=== PATIENT | female | born 1965 | race Caucasian/White ===

== ENCOUNTER 2021-01-15 16:39 | Outpatient (CLI) | payer OTHER, SELFPAY ==
--- NOTE | ~2021-01-15 | MM_ITS ---
EXAMINATION: MM screening [facility] BI w victor manuel HISTORY: Screening mammogram TECHNIQUE: Craniocaudal and mediolateral oblique 3-D tomosynthesis images were obtained and synthetic 2-D images were generated. CAD analysis was submitted and interpreted. COMPARISON: 11/18/2015 bilateral diagnostic digital mammogram examination 09/20/2013 bilateral diagnostic digital mammography and bilateral breast ultrasound 07/25/2012 bilateral diagnostic digital mammogram BREAST PARENCHYMAL COMPOSITION: There are scattered areas of fibroglandular density. FINDINGS: Diminished prominence of fibroglandular stroma since 11/18/2015. Occasional benign calcifica tions. There is no evidence of suspicious mass, calcification, or architectural distortion to suggest malignancy in either breast. There has been no suspicious interval change. IMPRESSION: 1. No mammographic evidence of malignancy. 2. Recommend routine screening mammography in one year. BI-RADS Category 2: Benign finding(s). Reviewed, dictated and finalized at location A.
== END 2021-01-15 16:40 | disposition home or self-care (01) ==
LOC: ANHIMG 16:44
PROVIDERS: PCP Nurse Practitioner Psychiatric/Mental Health; Visit Provider Nurse Practitioner Women's Health
DX: Z12.31 Encounter for screening mammogram for malignant neoplasm of breast (principal)
CPT/HCPCS: 77063; 77067

== ENCOUNTER 2024-10-28 09:13 | Emergency (ER) | payer OTHER, SELFPAY ==
--- OUTSIDE RECORDS SUMMARY | 2024-10-28 09:15 | XMS_ITS | Encounter Summary ---
Author Organization [facility] Address [facility] [place] [address] Care Team Providers Care Machine Repairer Maintenance Name Role Phone [place] tinsley Viridiana SKILL LABOR Primary Care Provider Unav ailable Antonietta Mckeon MD Primary Care Provider Encounter Details Date Type Department Care Team (Late st Contact Info) Description 05/21/2015 Abstract [facility] CONVERSION [address] [place] [address] MD [address] [place] [address] [phone] Social History Tobacco Use Types Packs/Day Years Used Date Smoking Tobacco: Never Assessed Comments Unknown Sex and Gender Information Value Date Recorded Sex Assigned at Female 11/03/2019 7:07 AM CDT Legal Sex Female 4:23 PM CDT Gender Identity Female 11/03/2019 7:07 AM CDT Sexual Orientation Straight 11/03/2019 7: 07 AM CDT documented as of this encounter Plan of Treatment Upcoming Encounters Date Type Department Care Team (Late st Contact Info) Description 02/01/2025 8:10 AM CDT Laboratory Only [facility] Family & Internal Medicine [address] [phone] 02/08/2025 10:20 AM CDT Office Visit [facility] Family & Internal Medicine - [place] [address] [place] [address] [place] [address] [facility] [address] [place] [phone] documented as of this encounter Visit Diagnoses Not on filedocumented in this encounter Additional Health Concerns Infection Onset Date Last Indicated Resolved Time COVID-19 Rule Out 11/04/2021 11/04/2021 11/04/2021 5:23 PM CDT COVID-19 Rule Out 11/18/2022 11/18/2022 11/18/2022 1:17 PM CDT documented as of this encounter Care Teams Machine Repairer Maintenance Relationship Specialty Start Date End Date Ewa Raya NP PCP - General NURSE PRACTITIONER 06/20/18 09/10/21 [place] [address] [facility] [address] [place] [address] PCP - General FAMILY PRACTICE 11/04/21 documented as of this encounter
--- OUTSIDE RECORDS SUMMARY | 2024-10-28 09:15 | XMS_ITS | Clinical Summary ---
Author Organization [facility] Address [address] [place] [address] Care Team Providers Care Web Art Director Name Role Phone Antonietta Mckeon MD Primary Care Provider [phone] Allergies Active Allergy Reactions Criticality Noted Date Comments Latex Unknown 10/22/2012 Nuts Unknown 10/22/2012 Medications carbidopa-levodopa 25-100 MG tablet Take 1 tablet by mouth 2 (two) times daily. 03/05/20 14 Active Multiple Vitamins-Iron (MULTI-VITAMIN/IRO N) Tab Take 1 tablet by mouth daily. Active Cholecalciferol 50 MCG (1999 UT) Cap Take 1 tablet by mouth daily. Active EPINEPHRINE 0.3 MG/0.3ML injectionIndicatio ns:Hx of anaphylaxis Inject 0.3 mLs (0.3 mg total) into the muscle as needed for Anaphylaxis . 1 each 2 12/09/19 22 Active Ofatumumab (KESIMPTA) 20 MG/0.4ML Solution Auto-injector 01/06/20 22 Active probiotic (FLORAJEN3) Cap capsule Take 1 capsule by mouth 3 (three) times daily with meals. Active sertraline (ZOLOFT) 25 MG tabletIndications: Mixed anxiety and depressive disorder Take 1 tablet (25 mg total) by mouth daily. 90 tablet 3 02/11/20 24 Active carBAMazepine XR (TEGRETOL XR) 100 MG 12 hr tablet Take 3 tablets (300 mg total) by mouth. Active atorvastatin (LIPITOR) 40 MG tabletIndications: Mixed hyperlipidemia Take 1 tablet (40 mg total) by mouth nightly at bedtime. 90 tablet 3 08/08/20 24 Active oxybutynin (DITROPAN) 5 MG tabletIndications: Overactive bladder TAKE 1 TABLET BY MOUTH TWICE A DAY 180 tablet 3 10/06/19 25 Active oxybutynin (DITROPAN) 5 MG tabletIndications: Overactive bladder Take 1 tablet (5 mg total) by mouth 2 (two) times daily. 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 ) 02/07/2015 Neurogenic bladder 02/07/2015 Muscle spasm 02/07/2015 Diverticulitis of sigmoid colon 02/07/2015 Multiple sclerosis ([facility]) 11/15/2013 Allergic rhinitis 12/12/2012 Vitamin D deficiency 06/27/2012 Hyperlipidemia 03/14/2012 Resolved Problems Problem Noted Date Diagnosed Date Resolved Date Need for prophylactic vaccin ation against hepatitis B virus 12/12/2021 12/15/2021 Reflux esophagitis 02/07/2015 Encounters Date Type Department Care Team Description 08/08/2024 9:40 AM ASSISTANT DIRECTOR OF ADMISSIONS Office Visit [facility] Family & Internal Medicine [address] [phone] Antonietta Mckeon MD Medication Management 08/08/2024 Travel from Last 3 Months Immunizations Name Administration Dates Next Due Flucelvax 2 YRS+ (Multi-Dose Vial) 08/21/2018 Flucelvax 6 Months+ (Prefill ed Syringe) 08/27/2019 Hepatitis B (Recombivax Hb 10 Mcg) 01/07/2022, Influenza (Generic) 05/23/2021, 7,06/27/2015,2013,06/28/2012 Influenza Adult (Generic) 05/18/2023,07/2022,07/29/2020,2019,08/21/2018,07/08/2014,06/28/2012 MODERNA COVID-19 (12+) MRNA, LNP-S, PF, 100 MCG/ 0.5 ML DOSE 06/11/2022,11/28/2020,10/26/2020 MODERNA COVID-19 (12+), MRNA , LNP-S, PF, 50 MCG/0.5 ML (SPIKEVAX) 05/18/2023 MODERNA COVID-19 (STUDENT NURSE HARDIK CARMITA), MRNA, LNP-S, PF, 50 MCG/ 0.25 ML DOSE 07/31/2021 PFIZER COVID-19 (ORIGINAL FORMULATION, PURPLE CAP) mRNA, LNP-S, PF, 30 MCG/0.3 ML DOSE 12/11/2021 Pneumococcal (Prevnar 20) 08/20/2023 Tdap (Adacel) 12/08/2021 Family History Medical History Relation Comments Diabetes Brother Heart Disease Brother Diabetes Father Heart Disease Father Hypertension Father Heart Disease Maternal Grandfather Breast Cancer Maternal Grandmother UNSURE OF A GE Heart Disease Maternal Grandmother Other Maternal Grandmother Arthritis Mother Na Diabetes Mother Na Fibrocystic breast disease Mother Heart Disease Mother Hypertension Mother Cancer Sister Diabetes Sister Heart Disease Sister Melanoma Sister Relation Status Comments Brother Alive Father Maternal Grandfather Maternal Grandmother Mother Sister Alive Social History Tobacco Use Types Packs/Day Years Used Date Smoking Tobacco: Former Cigarettes 1 4 Q uit: 1987 Smokeless Tobacco: Never Tobacco Cessation:Counseling Given: No Alcohol Use Standard Drinks/Week Comments Yes 0 (1 standard drink = 0.6 oz pur e alcohol) AUDIT-C Answer Date Recorded Frequency of Alcohol Consumption Not on file 07/26/2020 Q2: How many drinks containi ng alcohol do you have on a typical day when you are drinking? 1 or 2 07/26/2020 Frequency of Binge Drinking Not on file 11/2019 PHQ-2 Answer Date Recorded Patient Health Questionnaire-2 Score 0 02/11/2024 Comments No Sex and Gender Information Value Date Recorded Sex Assigned at Female 11/03/2019 7:07 AM CDT Legal Sex Female 4:23 PM CDT Gender Identity Female 11/03/2019 7:07 AM CDT Sexual Orientation Straight 11/03/2019 7: 07 AM CDT Last Filed Vital Signs Vital Sign Reading Time Taken Comments Blood Pressure 116/82 08/08/2024 9:11 AM ASSISTANT DIRECTOR OF ADMISSIONS Pulse 68 08/08/2024 9:11 AM ASSISTANT DIRECTOR OF ADMISSIONS Temperature 36.7 C (98.1 F) 08/08/2024 9:11 AM ASSISTANT DIRECTOR OF ADMISSIONS Respiratory Rate 14 08/08/2024 9:11 AM ASSISTANT DIRECTOR OF ADMISSIONS Oxygen Saturation 99% 08/08/2024 9:11 AM ASSISTANT DIRECTOR OF ADMISSIONS Inhaled Oxygen Concentration - - Weight 82.1 kg (181 lb) 08/08/2024 9:11 AM ASSISTANT DIRECTOR OF ADMISSIONS Height 157.5 cm (5' 2 ) 08/08/2024 9:11 AM ASSISTANT DIRECTOR OF ADMISSIONS Body Mass Index 33.11 08/08/2024 9:11 AM ASSISTANT DIRECTOR OF ADMISSIONS Plan of Treatment Upcoming Encounters Date Type Department Care Team (Late st Contact Info) Description 02/01/2025 8:10 AM CDT Laboratory Only [facility] Family & Internal Medicine [address] [phone] 02/08/2025 10:20 AM CDT Office Visit [facility] Family & Internal Medicine [address] [phone] [place] [address] [facility]. [address] [place] [phone] Health Maintenance Due Date Last Done Comments Cervical Cancer Screening Pap Smear (Age 30 to 64) Every 3 Years 1964 Annual Physical 01/10/1967 Hepatitis C 01/10/1982 RSV Immunization or 60+ Years (1 - Risk 60-74 years 1-dose series) 2024 COVID-19 Vaccine ( season) 2024 05/05/2024, 05/18/2023, 06/11/2022, Additional history exists PHQ-2 (Physician [place]) 08/23/2024 02/11/2024 Colorectal Cancer Screening FIT-DNA (3 Years) 01/14/2025 01/14/2022, 09/01/2018 Mammogram Screening 03/07/2026 03/07/2024, 02/08/2023, 01/29/2022, Additional history exists Cervical Cancer Screening Pap with HPV Testing (Age 30 to 64) Every 5 Years 02/13/2029 02/14/2024, 08/10/2018 Cervical Cancer Screening with HPV 02/13/2029 DTaP, Tdap and Td Vaccines (2 - Td or Tdap) 12/09/2031 12/08/2021 Pneumococcal Vaccine: Pediatrics (0 to 5 Years) and At-Risk Patients (6 to 64 Years) Completed 08/20/2023 Zoster Vaccines Completed 11/04/2023, 09/03/2023 Colorectal Cancer Screening FIT/FOBT (1 Year) Discontinued 03/18/2024 Influenza Adult Completed 05/08/2024, 04/24, 06/03/2022, Additional history exists Meningococcal B Vaccine Aged Out No l onger eligible based on patient's age to complete this topic Meningococcal Vaccine Aged Out No milo dennis eligible based on patient's age to complete this topic RSV Immunizations Under 20 Months Aged Out No longer eligible based on patient's age to complete this topic Procedures Procedure Name Priority Date/Time Associated Diagnosis Comments FECAL BLOOD OCCULT (SCAN ORDER) Routine 03/18/2024 MG SCREENING W PHU RAEGAN DIGI Routine 03/07/2024 2:44 PM CDT Visit for screening mammogram OUTSIDE CYTOPATH CERV/VAG INTERPRET (PAP) 02/14/2024 COLOGUARD (SCAN ORDER) Routine 01/14/2022 from Last 3 Months or Most Recently Relevant to Health Maintenance Results * FECAL BLOOD OCCULT (03/18/2024) FECAL OCCULT BLOOD POSITIVE HS ONBASE 03/18/2024 [facility] Scanned SCANNING Final Resu lt [facility] ONBASE * MG SCREENING W PHU RAEGAN DIGI (03/07/2024 2:44 PM CDT) Anatomical Region Laterality Modality Breast Bilateral Mammography 03/07/2024 4:30 PM CDT Impressions 03/07/2024 4:36 PM CDT ===== IMPRESSION: ===== 1. Stable mammographic appearance with no new findings to suggest malignancy in either breast. Assessment: ACR BI-RADS 2 - BENIGN FINDING(S) Recommendation: 1:Routine Screening Bilateral Comments: Ordered By: HAY HICKEY Interpreted By: Mauricio Moura, 03/07/2024 4:30 PM Narrative 03/07/2024 4:36 PM CDT EXAMINATION: Digital bilateral screening mammogram with 3-D tomosynthesis EXAM DATE/TIME: 03/07/2024 1:53 PM REASON FOR EXAM: scr Benign bilateral biopsies. Mother with breast carcinoma. Maternal grandmother with breast carcinoma COMPARISON: 01/29/2022.. 02/08/2023. Technique: Digital screening mammography of both breasts was performed in addition to 3-D Tomosynthesis technique. This study was read with the assistance of a computer-aided detection system. Tissue density: There are scattered areas of fibroglandular density. Findings: There is no new focal asymmetry, dominant mass lesion, area of skin thickening, or cluster of suspicious appearing calcifications in either breast to suggest malignancy. Hay Hickey GAS OPERATIONS ANALYST MAMMO Final Result * PAP SMEAR WITH HPV (02/14/2024) 02/14/2024 [id number] Scanned SCANNING Final Resu lt * COLOGUARD (01/14/2022) COLOGUARD NEGATIVE [facility] STOOL 01/14/2022 [id number] Scanned SCANNING Final Resu lt [facility] from Last 3 Months or Most Recently Relevant to Health Maintenance Insurance [facility] Advance Directives Healthcare Agents on File Name Relationship Healthcare Agent Relationshi p Communication Liviacastillo [facility] Health Care Agent Care Teams Web Art Director Relationship Specialty Start [place] [address] [address] [place] [address] PCP - General FAMILY PRACTICE 11/04/21
--- OUTSIDE RECORDS SUMMARY | 2024-10-28 09:15 | XMS_ITS | Referral Summary ---
Author Organization [facility] Address [address] [place] [id number] Care Team Providers Care Doula Name Role Phone Ewa Raya NP Primary Care Provider [phone] Encounters Date Type Department Care Team Description 08/31/2024 Documentation [facility] Multiple Sclerosis [address] [place] [phone] Kristen Aleman RN 08/31/2024 12:00 PM OPHTHALMIC MEDICAL TECHNOLOGIST Lab [facility] [address] [place] [phone] Multiple sclerosis (HCC); ARUN (internuclear ophthalmoplegia), bilateral; Abnormal MRI; Abnormality of gait and mobility; Diplopia; High risk medication use; Medication monitoring encounter; Neurogenic bladder disorder; Trigeminal neuralgia 08/31/2024 9:30 AM OPHTHALMIC MEDICAL TECHNOLOGIST Office Visit [facility] Multiple Sclerosis [address] [place] [address] [address] [place] [address] Kristin De La Torre, JERICHO ARUN (internuclear ophthalmoplegia), bilateral (Primary Dx); Multiple sclerosis (HCC); Abnormal MRI; Abnormality of gait and mobility; Diplopia; High risk medication use; Medication monitoring encounter; Neurogenic bladder disorder; Trigeminal neuralgia 08/31/2024 10:25 AM OPHTHALMIC MEDICAL TECHNOLOGIST - 08/31/2024 11:59 PM OPHTHALMIC MEDICAL TECHNOLOGIST Hospital Encounter [facility] ([facility] [address] [place] [address] Omar Mitchell MD Multiple sclerosis ([facility]) Discharge Disposition: Discharge to home or self care 08/29/2024 Telephone [facility] Scheduling [address] [place] [address] Mariah Rice BS 08/28/2024 Telephone [facility] Scheduling [address] [place] [address] Maximilian De Luna 08/17/2024 Orders Only [facility] Multiple Sclerosis [address] [facility] [place] [address] Omar Mitchell MD Multiple sclerosis ([facility]); High risk medication use; Vitamin D deficiency; Abnormal MRI; Mixed anxiety and depressive disorder; Neurogenic bladder from Last 3 Months Allergies Active Allergy Reactions Criticality Noted Date Comments Latex Unknown 10/22/2012 Nuts Hives Medium 06/08/2011 Medications cholecalciferol (VITAMIN D-3) 2,000 unit tablet daily. Active multivitamin tabletIndicatio ns:Vitamin Deficiency Prevention daily. 04/30/2006 Active EPINEPHrine 0.3 mg/0.3 mL auto-injection syringe INJECT 0.3ML INTO THE MUSCLE PRF SEVERE ALLERGIC REACTION 01/09/2020 Active oxyBUTYnin (DITROPAN) 5 mg tabletIndicatio ns:Multiple sclerosis (HCC),Mixed anxiety and depressive disorder,Neurog enic bladder,Abnorma l MRI,High risk medication use,Vitamin D deficiency Take 1 tablet (5 mg total) by mouth daily 90 tablet 3 03/26/2023 Active sertraline (ZOLOFT) 25 mg tabletIndicatio ns:depression Take 1 tablet (25 mg total) by mouth daily Active ofatumumab (Kesimpta Pen) 20 mg/0.4 mL pen injectorIndicat ions:Multiple sclerosis ([facility]) Inject 20 mg under the skin every 4 (four) weeks 0.4 mL 5 06/13/2024 Active carbidopa-levod opa (SINEMET) 25-100 mg per tabletIndicatio ns:Parkinsonism Take 2 tablets by mouth daily 180 tablet 3 08/17/2024 08/17/20 25 Active carBAMazepine XR (TEGretol XR) 100 mg 12 hr tablet TAKE 3 TABLETS BY MOUTH 3 TIMES A DAY 810 tablet 1 08/27/2024 Active atorvastatin (LIPITOR) 40 mg tablet Take 1 tablet (40 mg total) by mouth nightly 08/08/2024 Active Active Problems Problem Noted Date Diagnosed Date Trigeminal neuralgia 08/28/2024 Immunosuppression due to drug therapy 02/24/2022 Dysesthesia of multiple sites 02/24/2022 ARUN (internuclear ophthalmoplegia), bilateral Multiple sclerosis exacerbation 11/09/2021 Diplopia 11/05/2021 History of optic neuritis 11/05/2021 Medication monitoring encounter 11/14/2020 Abnormality of gait and mobility 11/14/2020 Abnormal MRI 01/30/2019 Mixed anxiety and depressive disorder 01/30/2019 Anxiety 10/28/2015 High risk medication use 10/28/2015 Vitamin D deficiency 06/27/2012 Neurogenic bladder disorder 12/28/2011 Multiple sclerosis 04/30/2006 Immunizations Immunization Administration Dates Next Due COVID-19 MRNA (MODERNA) .5 M L (50 MCG) VACCINE (12 YEARS AND UP) 05/18/2023 Flucelvax Influenza Quad 08/27/2019 Hep B Vaccine 01/07/2022,12/08/2021 Influenza, Quadrivalent, Gladis l Culture-based MDCK, Antibiotic Free, Intramuscular 08/21/2018,08/21/2018 Influenza, Quadrivalent, Gladis l Culture-based MDCK, Preservative Free, Antibiotic Free, Intramuscular 06/03/2022,08/27/2019 Influenza, Quadrivalent, Spl it, Preservative Free, Intramuscular 05/18/2023,07/29/2020 Influenza, Trivalent, Cell Culture-based MDCK, Preservative Free, Antibiotic Free, Intramuscular 08/27/2019 Influenza, Trivalent, IM (MDV) ,07/08/2014,07/08/2014,06/28,06/28/2012 Influenza, Trivalent, Preser vative Free, Intramuscular 07/17/2017,06/27/2015,06/27/2015 Influenza, Unspecified 05/18/2023,2021,05/23/2021,07/29,07/18/2017,06/28/2015 Moderna SARS-CoV-2 Monovalen t Vaccination (12+ YRS) 06/11/2022,11/28/2020,10/26/2020 Pfizer SARS-CoV-2 Monovalent Vaccination (12+ Yrs) PURPLE 12/11/2021 Pneumococcal Conjugate Pcv20 08/20/2023 Tdap 12/08/2021 Social History Tobacco Use Types Packs/Day Years Used Date Smoking Tobacco: Former Cigarettes 0.8 5 0 10/22/1981 - 10/30/1986 Smokeless Tobacco: Never Tobacco Cessation:Counseling Given: Not Answered Comments:quit smoking AUDIT-C Answer Date Recorded Q1: How often do you have a drink containing alc ohol? Monthly or less 11/06/2021 Q2: How many drinks containi ng alcohol do you have on a typical day when you are drinking? 1 or 2 11/06/2021 Q3: How often do you have si x or more drinks on one occasion? Never 11/06/2021 Comments No Sex and Gender Information Value Date Recorded Sex Assigned at Not on file Legal Sex Female 1:43 AM OPHTHALMIC MEDICAL TECHNOLOGIST Gender Identity Female 11/08/2020 10:54 AM CDT Sexual Orientation Straight 11/08/2020 10 :54 AM CDT Last Filed Vital Signs Vital Sign Reading Time Taken Comments Blood Pressure 143/82 08/31/2024 9:08 AM OPHTHALMIC MEDICAL TECHNOLOGIST Pulse 66 08/31/2024 9:08 AM OPHTHALMIC MEDICAL TECHNOLOGIST Temperature 36.9 C (98.4 F) 11/20/2021 2:36 PM CDT Respiratory Rate 16 11/09/2021 7:50 AM CDT Oxygen Saturation 96% 11/09/2021 7:50 AM CDT Inhaled Oxygen Concentration - - Weight 82.1 kg (181 lb) 08/31/2024 9:08 AM OPHTHALMIC MEDICAL TECHNOLOGIST Height 165.1 cm (5' 5 ) 08/31/2024 9:08 AM OPHTHALMIC MEDICAL TECHNOLOGIST Body Mass Index 30.12 08/31/2024 9:08 AM OPHTHALMIC MEDICAL TECHNOLOGIST Plan of Treatment Not on file Procedures Procedure Name Priority Date/Time Associated Diagnosis Comments MRI SPINE CERVICAL THORACIC W WO CONTRAST Routine 08/31/2024 1:04 PM OPHTHALMIC MEDICAL TECHNOLOGIST Multiple sclerosis (HCC) MRI MS BRAIN 3T PROTOCOL W WO CONTRAST Routine 08/31/2024 1:04 PM OPHTHALMIC MEDICAL TECHNOLOGIST Multiple sclerosis (HCC) EGFR Routine 08/31/2024 10:24 AM OPHTHALMIC MEDICAL TECHNOLOGIST Multiple sclerosis (HCC) ARUN (internuclear ophthalmoplegia), bilateral Abnormal MRI Abnormality of gait and mobility Diplopia High risk medication use Medication monitoring encounter Neurogenic bladder disorder Trigeminal neuralgia DIFFERENTIAL AUTO Routine 08/31/2024 10: 24 AM OPHTHALMIC MEDICAL TECHNOLOGIST Multiple sclerosis (HCC) ARUN (internuclear ophthalmoplegia), bilateral Abnormal MRI Abnormality of gait and mobility Diplopia High risk medication use Medication monitoring encounter Neurogenic bladder disorder Trigeminal neuralgia CBC WITH AUTO DIFFERENTIAL Routine 08/31/2024 10:24 AM OPHTHALMIC MEDICAL TECHNOLOGIST Multiple sclerosis (HCC) ARUN (internuclear ophthalmoplegia), bilateral Abnormal MRI Abnormality of gait and mobility Diplopia High risk medication use Medication monitoring encounter Neurogenic bladder disorder Trigeminal neuralgia IMMUNE COMPETENCE Routine 08/31/2024 10: 24 AM OPHTHALMIC MEDICAL TECHNOLOGIST Multiple sclerosis (HCC) ARUN (internuclear ophthalmoplegia), bilateral Abnormal MRI Abnormality of gait and mobility Diplopia High risk medication use Medication monitoring encounter Neurogenic bladder disorder Trigeminal neuralgia IGM Routine 08/31/2024 10:24 AM OPHTHALMIC MEDICAL TECHNOLOGIST Multiple sclerosis (HCC) ARUN (internuclear ophthalmoplegia), bilateral Abnormal MRI Abnormality of gait and mobility Diplopia High risk medication use Medication monitoring encounter Neurogenic bladder disorder Trigeminal neuralgia IGA Routine 08/31/2024 10:24 AM OPHTHALMIC MEDICAL TECHNOLOGIST Multiple sclerosis (HCC) ARUN (internuclear ophthalmoplegia), bilateral Abnormal MRI Abnormality of gait and mobility Diplopia High risk medication use Medication monitoring encounter Neurogenic bladder disorder Trigeminal neuralgia IGG Routine 08/31/2024 10:24 AM OPHTHALMIC MEDICAL TECHNOLOGIST Multiple sclerosis (HCC) ARUN (internuclear ophthalmoplegia), bilateral Abnormal MRI Abnormality of gait and mobility Diplopia High risk medication use Medication monitoring encounter Neurogenic bladder disorder Trigeminal neuralgia COMPREHENSIVE METABOLIC PANEL Routine 08/31/2024 10:24 AM OPHTHALMIC MEDICAL TECHNOLOGIST Multiple sclerosis (HCC) ARUN (internuclear ophthalmoplegia), bilateral Abnormal MRI Abnormality of gait and mobility Diplopia High risk medication use Medication monitoring encounter Neurogenic bladder disorder Trigeminal neuralgia HEPATITIS C ANTIBODY Routine 11/20/2021 5:27 PM CDT Multiple sclerosis (HCC) Medication monitoring encounter Abnormal MRI Vitamin D deficiency Abnormality of gait and mobility Encounter for medication counseling ARUN (internuclear ophthalmoplegia), 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 New T2 Lesions: None Enhancing Lesions: None Other significant findings: None Dictated by: Arjun Silva MD The radiology attending physician has personally reviewed this study, and had reviewed and/or edited this written report and agrees with it. Electronically signed by: Roberto Alfaro M.D. Ph.D. Narrative 08/31/2024 3:18 PM OPHTHALMIC MEDICAL TECHNOLOGIST EXAMINATION: Magnetic resonance imaging (MRI) of the brain and brainstem without and with contrast Magnetic resonance imaging (MRI) of the cervical and thoracic spine without and with contrast HISTORY: 59-year-old woman with Multiple sclerosis. TECHNIQUE: Multiplanar multi-weighted MRI of the brain, brainstem was performed without and with intravenous contrast using the multiple sclerosis protocol, which includes high resolution 3D T1-weighted, FLAIR, and T2*-weighted gradient echo images. Scanner: [facility] Field Strength: 3T Contrast information: 16 mL Gadoterate Meglumine The post-contrast scan was performed approximately 5 minutes after IV contrast administration. COMPARISON: MRI 08/13/2023 brain, MRI cervical and thoracic spine 09/01/2022 FINDINGS: BRAIN: There are multiple foci of hyperintensity on FLAIR and T2-weighted images within the white matter compatible with demyelinating plaques of multiple sclerosis. This includes periventricular, callosal, cerebellar, cortical or juxtacortical, and brainstem lesions. New Brain T2 Lesions: None T1 Hypointense Black Holes : Greater than 10, unchanged Enhancing Brain Lesions: None T2/FLAIR Enders of Disease: Severe, more than 30 typical lesions or large confluent lesions Parenchymal Volume Loss: Mild Central Vein Sign: Majority of lesions Other Significant Findings: None The visualized portions of the optic nerves are normal. The scalp and calvarium are normal. The superior sagittal sinus demonstrates normal venous flow. The corpus callosum is normal in shape and signal intensity. The posterior fossa is unremarkable. The pituitary and sella are normal. The brainstem and craniocervical junction are unremarkable. Diffusion weighted images reveal no hyperintensities to suggest acute cerebral infarction. The susceptibility weighted sequences reveal no evidence of acute or chronic hemorrhage. The ventricles are normal in size and position without evidence of hydrocephalus. The paranasal sinuses are normal. The visualized portions of the mastoids are unremarkable. The orbits appear normal. Normal flow voids are demonstrated in the carotid arteries and basilar artery. CERVICAL AND THORACIC SPINE: There is an unchanged STIR hyperintense lesion in the cord at C1 and in the right aspect of the cord at C5-C6. Thoracic cord lesions T1 and T5, T6, and T7/T8 are unchanged. New Spine T2 Lesions: 0 Enhancing Spine Lesions: 0 The cervical spine is straightened Alignment of the thoracic spine is normal. Vertebral bodies demonstrate normal signal intensity on all sequences. Annular fissure at C4-C5. Enhancement is seen within the intervertebral discs at T7-T8 and T8-T9. The craniocervical junction is normal. There is multilevel degenerative height loss and desiccation with disc bulges resulting in up to mild spinal canal stenosis. Hepatic cyst is noted Normal signal voids are present in the vertebral arteries. Procedure Note Roberto Alfaro MD PhD - 08/31/2024 EXAMINATION: Magnetic resonance imaging (MRI) of the brain and brainstem without and with contrast Magnetic resonance imaging (MRI) of the cervical and thoracic spine without and with contrast HISTORY: 59-year-old woman with Multiple sclerosis. TECHNIQUE: Multiplanar multi-weighted MRI of the brain, brainstem was performed without and with intravenous contrast using the multiple sclerosis protocol, which includes high resolution 3D T1-weighted, FLAIR, and T2*-weighted gradient echo images. Scanner: [facility] Field Strength: 3T Contrast information: 16 mL Gadoterate Meglumine The post-contrast scan was performed approximately 5 minutes after IV contrast administration. COMPARISON: MRI 08/13/2023 brain, MRI cervical and thoracic spine 09/01/2022 FINDINGS: BRAIN: There are multiple foci of hyperintensity on FLAIR and T2-weighted images within the white matter compatible with demyelinating plaques of multiple sclerosis. This includes periventricular, callosal, cerebellar, cortical or juxtacortical, and brainstem lesions. New Brain T2 Lesions: None T1 Hypointense Black Holes : Greater than 10, unchanged Enhancing Brain Lesions: None T2/FLAIR Enders of Disease: Severe, more than 30 typical lesions or large confluent lesions Parenchymal Volume Loss: Mild Central Vein Sign: Majority of lesions Other Significant Findings: None The visualized portions of the optic nerves are normal. The scalp and calvarium are normal. The superior sagittal sinus demonstrates normal venous flow. The corpus callosum is normal in shape and signal intensity. The posterior fossa is unremarkable. The pituitary and sella are normal. The brainstem and craniocervical junction are unremarkable. Diffusion weighted images reveal no hyperintensities to suggest acute cerebral infarction. The susceptibility weighted sequences reveal no evidence of acute or chronic hemorrhage. The ventricles are normal in size and position without evidence of hydrocephalus. The paranasal sinuses are normal. The visualized portions of the mastoids are unremarkable. The orbits appear normal. Normal flow voids are demonstrated in the carotid arteries and basilar artery. CERVICAL AND THORACIC SPINE: There is an unchanged STIR hyperintense lesion in the cord at C1 and in the right aspect of the cord at C5-C6. Thoracic cord lesions T1 and T5, T6, and T7/T8 are unchanged. New Spine T2 Lesions: 0 Enhancing Spine Lesions: 0 The cervical spine is straightened Alignment of the thoracic spine is normal. Vertebral bodies demonstrate normal signal intensity on all sequences. Annular fissure at C4-C5. Enhancement is seen within the intervertebral discs at T7-T8 and T8-T9. The craniocervical junction is normal. There is multilevel degenerative height loss and desiccation with disc bulges resulting in up to mild spinal canal stenosis. Hepatic cyst is noted Normal signal voids are present in the vertebral arteries. IMPRESSION: Multiple unchanged intracranial as well as cervical and thoracic white matter lesions. New T2 Lesions: None Enhancing Lesions: None Other significant findings: None Dictated by: Arjun Silva MD The radiology attending physician has personally reviewed this study, and had reviewed and/or edited this written report and agrees with it. Electronically signed by: Roberto Alfaro M.D. Ph.D. us Omar Mitchell MD IMG MRI PROCEDURES Final Result * MRI MS Brain 3T Protocol W WO Contrast (08/31/2024 1:04 PM OPHTHALMIC MEDICAL TECHNOLOGIST) Anatomical Region Laterality Modality Head and Neck N/A Magnetic Resonan ce 08/31/2024 3:11 PM OPHTHALMIC MEDICAL TECHNOLOGIST Impressions 08/31/2024 3:18 PM OPHTHALMIC MEDICAL TECHNOLOGIST Multiple unchanged intracranial as well as cervical and thoracic white matter lesions. New T2 Lesions: None Enhancing Lesions: None Other significant findings: None Dictated by: Arjun Silva MD The radiology attending physician has personally reviewed this study, and had reviewed and/or edited this written report and agrees with it. Electronically signed by: Roberto Alfaro M.D. Ph.D. Narrative 08/31/2024 3:18 PM OPHTHALMIC MEDICAL TECHNOLOGIST EXAMINATION: Magnetic resonance imaging (MRI) of the brain and brainstem without and with contrast Magnetic resonance imaging (MRI) of the cervical and thoracic spine without and with contrast HISTORY: 59-year-old woman with Multiple sclerosis. TECHNIQUE: Multiplanar multi-weighted MRI of the brain, brainstem was performed without and with intravenous contrast using the multiple sclerosis protocol, which includes high resolution 3D T1-weighted, FLAIR, and T2*-weighted gradient echo images. Scanner: [facility] Field Strength: 3T Contrast information: 16 mL Gadoterate Meglumine The post-contrast scan was performed approximately 5 minutes after IV contrast administration. COMPARISON: MRI 08/13/2023 brain, MRI cervical and thoracic spine 09/01/2022 FINDINGS: BRAIN: There are multiple foci of hyperintensity on FLAIR and T2-weighted images within the white matter compatible with demyelinating plaques of multiple sclerosis. This includes periventricular, callosal, cerebellar, cortical or juxtacortical, and brainstem lesions. New Brain T2 Lesions: None T1 Hypointense Black Holes : Greater than 10, unchanged Enhancing Brain Lesions: None T2/FLAIR Enders of Disease: Severe, more than 30 typical lesions or large confluent lesions Parenchymal Volume Loss: Mild Central Vein Sign: Majority of lesions Other Significant Findings: None The visualized portions of the optic nerves are normal. The scalp and calvarium are normal. The superior sagittal sinus demonstrates normal venous flow. The corpus callosum is normal in shape and signal intensity. The posterior fossa is unremarkable. The pituitary and sella are normal. The brainstem and craniocervical junction are unremarkable. Diffusion weighted images reveal no hyperintensities to suggest acute cerebral infarction. The susceptibility weighted sequences reveal no evidence of acute or chronic hemorrhage. The ventricles are normal in size and position without evidence of hydrocephalus. The paranasal sinuses are normal. The visualized portions of the mastoids are unremarkable. The orbits appear normal. Normal flow voids are demonstrated in the carotid arteries and basilar artery. CERVICAL AND THORACIC SPINE: There is an unchanged STIR hyperintense lesion in the cord at C1 and in the right aspect of the cord at C5-C6. Thoracic cord lesions T1 and T5, T6, and T7/T8 are unchanged. New Spine T2 Lesions: 0 Enhancing Spine Lesions: 0 The cervical spine is straightened Alignment of the thoracic spine is normal. Vertebral bodies demonstrate normal signal intensity on all sequences. Annular fissure at C4-C5. Enhancement is seen within the intervertebral discs at T7-T8 and T8-T9. The craniocervical junction is normal. There is multilevel degenerative height loss and desiccation with disc bulges resulting in up to mild spinal canal stenosis. Hepatic cyst is noted Normal signal voids are present in the vertebral arteries. Procedure Note Roberto Alfaro MD PhD - 08/31/2024 EXAMINATION: Magnetic resonance imaging (MRI) of the brain and brainstem without and with contrast Magnetic resonance imaging (MRI) of the cervical and thoracic spine without and with contrast HISTORY: 59-year-old woman with Multiple sclerosis. TECHNIQUE: Multiplanar multi-weighted MRI of the brain, brainstem was performed without and with intravenous contrast using the multiple sclerosis protocol, which includes high resolution 3D T1-weighted, FLAIR, and T2*-weighted gradient echo images. Scanner: [facility] Field Strength: 3T Contrast information: 16 mL Gadoterate Meglumine The post-contrast scan was performed approximately 5 minutes after IV contrast administration. COMPARISON: MRI 08/13/2023 brain, MRI cervical and thoracic spine 09/01/2022 FINDINGS: BRAIN: There are multiple foci of hyperintensity on FLAIR and T2-weighted images within the white matter compatible with demyelinating plaques of multiple sclerosis. This includes periventricular, callosal, cerebellar, cortical or juxtacortical, and brainstem lesions. New Brain T2 Lesions: None T1 Hypointense Black Holes : Greater than 10, unchanged Enhancing Brain Lesions: None T2/FLAIR Enders of Disease: Severe, more than 30 typical lesions or large confluent lesions Parenchymal Volume Loss: Mild Central Vein Sign: Majority of lesions Other Significant Findings: None The visualized portions of the optic nerves are normal. The scalp and calvarium are normal. The superior sagittal sinus demonstrates normal venous flow. The corpus callosum is normal in shape and signal intensity. The posterior fossa is unremarkable. The pituitary and sella are normal. The brainstem and craniocervical junction are unremarkable. Diffusion weighted images reveal no hyperintensities to suggest acute cerebral infarction. The susceptibility weighted sequences reveal no evidence of acute or chronic hemorrhage. The ventricles are normal in size and position without evidence of hydrocephalus. The paranasal sinuses are normal. The visualized portions of the mastoids are unremarkable. The orbits appear normal. Normal flow voids are demonstrated in the carotid arteries and basilar artery. CERVICAL AND THORACIC SPINE: There is an unchanged STIR hyperintense lesion in the cord at C1 and in the right aspect of the cord at C5-C6. Thoracic cord lesions T1 and T5, T6, and T7/T8 are unchanged. New Spine T2 Lesions: 0 Enhancing Spine Lesions: 0 The cervical spine is straightened Alignment of the thoracic spine is normal. Vertebral bodies demonstrate normal signal intensity on all sequences. Annular fissure at C4-C5. Enhancement is seen within the intervertebral discs at T7-T8 and T8-T9. The craniocervical junction is normal. There is multilevel degenerative height loss and desiccation with disc bulges resulting in up to mild spinal canal stenosis. Hepatic cyst is noted Normal signal voids are present in the vertebral arteries. IMPRESSION: Multiple unchanged intracranial as well as cervical and thoracic white matter lesions. New T2 Lesions: None Enhancing Lesions: None Other significant findings: None Dictated by: Arjun Silva MD The radiology attending physician has personally reviewed this study, and had reviewed and/or edited this written report and agrees with it. Electronically signed by: Roberto Alfaro M.D. Ph.D. Omar Mitchell MD [facility] MRI PROCEDURES Final Result * eGFR (08/31/2024 10:24 AM OPHTHALMIC MEDICAL TECHNOLOGIST) eGFR 90 >=60 mL/min/1. 73 m2 Comment: Interpretive Data Reference Interval Normal >/= 90 mL/min/1.73m2 Mildly decreased* 60 - 89 mL/min/1.73m2 Mildly to moderately decreased 45 - 59 mL/min/1.73m2 Moderately to severely decreased 30 - 44 mL/min/1.73m2 Severely decreased 15 - 29 mL/min/1.73m2 Kidney Failure < 15 mL/min/1.73m2 *Relative to young adult level Estimated glomerular filtration rate is determined by the 2020 CKD-EPI equation recommended by the National Kid[employer] (A Unifying Approach to GFR Estimation: Recommendations of the NKF-ASK Task Force on Reassessing the Inclusion of Race in Diagnosing Kidney Disease, JASN 2020). The CKD-EPI equation should not be used for patients with unstable renal function and has not been validated in children and those over 70. Current interpretive data was last reviewed 2021. Blood 08/31/2024 10:2 4 AM OPHTHALMIC MEDICAL TECHNOLOGIST 08/31/2024 11:02 AM OPHTHALMIC MEDICAL TECHNOLOGIST Kristin De La Torre PERFORMANCE TEST CONSULTANT LAB BLOOD ORDERABLES Final Res ult [facility] Department [place] [address] * Differential, auto (08/31/2024 10:24 AM OPHTHALMIC MEDICAL TECHNOLOGIST) Neutrophil abs 5.2 1.5 - 6.5 K/cumm Imm gran abs 0.0 0.0 - 0.1 K/cumm [facility] Lymphocyte abs 1.3 0.8 - 3.3 K/cumm [facility] Monocyte abs 0.4 0.2 - 0.8 K/cumm [facility] Eosinophil abs 0.1 0.0 - 0.5 K/cumm [facility] Basophil abs 0.0 0.0 - 0.1 K/cumm [facility] Neutrophil pct 73.8 % [facility] Comment: Interpretive Data Percent cell count reference ranges are not reported, since discordance with absolute values may lead to misinterpretation of CBC data. Current Interpretive Data was last revised on 2017. Imm gran pct 0.3 % [facility] Comment: Interpretive Data Percent cell count reference ranges are not reported, since discordance with absolute values may lead to misinterpretation of CBC data. Current Interpretive Data was last revised on 2017. Lymphocyte pct 18.7 % [facility] Comment: Interpretive Data Percent cell count reference ranges are not reported, since discordance with absolute values may lead to misinterpretation of CBC data. Current Interpretive Data was last revised on 2017. Monocyte pct 6.1 % [facility] Comment: Interpretive Data Percent cell count reference ranges are not reported, since discordance with absolute values may lead to misinterpretation of CBC data. Current Interpretive Data was last revised on 2017. Eosinophil pct 0.7 % [facility] Comment: Interpretive Data Percent cell count reference ranges are not reported, since discordance with absolute values may lead to misinterpretation of CBC data. Current Interpretive Data was last revised on 2017. Basophil pct 0.4 % [facility] Comment: Interpretive Data Percent cell count reference ranges are not reported, since discordance with absolute values may lead to misinterpretation of CBC data. Current Interpretive Data was last revised on 2017. Blood 08/31/2024 10:2 4 AM OPHTHALMIC MEDICAL TECHNOLOGIST 08/31/2024 11:03 AM OPHTHALMIC MEDICAL TECHNOLOGIST us Valeria Gokulleonard PERFORMANCE TEST CONSULTANT LAB BLOOD ORDERABLES Final Res ult [facility] Department [place] [address] * (ABNORMAL) Immune competence (08/31/2024 10:24 AM OPHTHALMIC MEDICAL TECHNOLOGIST) CD3 pct 87 60 - 88 % CD3 Absolute 1,031 661 - 1,963 cells/mcL [facility] CD4 pct 76(H) 31 - 64 % [facility] CD4 Absolute 876 365 - 1,294 cells/mcL [facility] CD8 pct 9(L) 12 - 40 % [facility] CD8 Absolute 100(L) 187 - 781 cells/mcL [facility] CD19 pct 0(L) 6 - 25 % [facility] CD19 Absolute <25(L) 86 - 488 cells/mcL [facility] Comment:Verified [id number] pct 12 5 - 25 % [facility] [id number] Absolute 143 76 - 467 cells/mcL [facility] CD4/CD8 ratio 8.4(H) 0.9 - 4.4 [facility] Blood 08/31/2024 10:2 4 AM OPHTHALMIC MEDICAL TECHNOLOGIST 08/31/2024 11:02 AM OPHTHALMIC MEDICAL TECHNOLOGIST Kristin De La Torre PERFORMANCE TEST CONSULTANT LAB BLOOD ORDERABLES Final Res ult Performing Organization Address City/[facility]/ZIP Co de Phone Number [facility] [place] [address] * CBC with auto differential (08/31/2024 10:24 AM OPHTHALMIC MEDICAL TECHNOLOGIST) WBC 7.1 3.8 - 9.9 K/cumm Hgb 13.1 11.9 - 15.5 g/dL [facility] Hct 40.5 35.6 - 45.5 % [facility] Plt 188 150 - 400 K/cumm [facility] MPV 10.8 9.1 - 12.3 fL [facility] RBC 4.43 3.90 - 5.20 M/cumm [facility] MCV 91.4 81.3 - 96.4 fL [facility] MCH 29.6 27.1 - 33.3 pg [facility] MCHC 32.3 32.3 - 35.7 g/dL [facility] RDW CV 12.2 11.1 - 14.9 % [facility] RDW SD 41.1 35.7 - 48.1 fL [facility] NRBC abs 0.00 0.00 - 0.01 K/cumm [facility] Blood 08/31/2024 10:2 4 AM OPHTHALMIC MEDICAL TECHNOLOGIST 08/31/2024 11:03 AM OPHTHALMIC MEDICAL TECHNOLOGIST Kristin De La Torre PERFORMANCE TEST CONSULTANT LAB BLOOD ORDERABLES Final Res ult [facility] Department [place] [address] * IgA (08/31/2024 10:24 AM OPHTHALMIC MEDICAL TECHNOLOGIST) Immunoglobulin A 237 70 - 400 mg/dL Blood 08/31/2024 10:2 4 AM OPHTHALMIC MEDICAL TECHNOLOGIST 08/31/2024 11:02 AM OPHTHALMIC MEDICAL TECHNOLOGIST Kristin De La Torre PERFORMANCE TEST CONSULTANT LAB BLOOD ORDERABLES Final Res ult [facility] [place] [address] * IgM (08/31/2024 10:24 AM OPHTHALMIC MEDICAL TECHNOLOGIST) Pathologist [facility] Immunoglobulin M 59 40 - 230 mg/dL Blood 08/31/2024 10:2 4 AM OPHTHALMIC MEDICAL TECHNOLOGIST 08/31/2024 11:02 AM OPHTHALMIC MEDICAL TECHNOLOGIST Kristin De La Torre PERFORMANCE TEST CONSULTANT LAB BLOOD ORDERABLES Final Res ult Performing Organization Address City/[facility] Co de Phone Number [facility] [place] [address] * IgG (08/31/2024 10:24 AM OPHTHALMIC MEDICAL TECHNOLOGIST) [facility] Immunoglobulin G 1,074 700 - 1,600 mg/dL Blood 08/31/2024 10:2 4 AM OPHTHALMIC MEDICAL TECHNOLOGIST 08/31/2024 11:02 AM OPHTHALMIC MEDICAL TECHNOLOGIST Kristin De La Torre PERFORMANCE TEST CONSULTANT LAB BLOOD ORDERABLES Final Res ult Performing Organization Address City/[facility] Co de Phone Number [facility] [place] [address] * Comprehensive metabolic panel (08/31/2024 10:24 AM OPHTHALMIC MEDICAL TECHNOLOGIST) [facility] Sodium 141 135 - 145 mmol/L Potassium, pl 4.7 3.3 - 4.9 mmol/L [facility] Chloride 103 97 - 110 mmol/L [facility] CO2 31 22 - 32 mmol/L [facility] Anion gap 7 2 - 15 mmol/L [facility] BUN 15 6 - 25 mg/dL [facility] Creatinine 0.76 0.60 - 1.10 mg/dL [facility] Glucose 96 70 - 199 mg/dL [facility] Comment: Interpretive Data Fasting glucose >/= 126 mg/dl is diagnostic for diabetes. Fasting is defined as no caloric intake for at least 8 hours. Fasting glucose between 100 mg/dl to 125 mg/dl is diagnostic of prediabetes. In a patient with classic symptoms of hyperglycemia or hyperglycemic crisis, a random glucose >/= 200 mg/dl is diagnostic for diabetes. In the absence of unequivocal hyperglycemia, results should be confirmed by repeat testing. The classification and Diagnosis of Diabetes Diabetes Care 2021; 46: S19-S40. Current interpretive data was last revised 2022. Calcium 10.1 8.5 - 10.3 mg/dL [facility] Bilirubin, total 0.2 0.1 - 1.2 mg/dL [facility] Protein, pl 7.4 6.5 - 8.5 g/dL [facility] Albumin 4.3 3.5 - 5.0 g/dL [facility] Alk phos 100 40 - 130 Units/L [facility] ALT 8 7 - 45 Units/L [facility] AST 25 10 - 45 Units/L [facility] Blood 08/31/2024 10:2 4 AM OPHTHALMIC MEDICAL TECHNOLOGIST 08/31/2024 11:02 AM OPHTHALMIC MEDICAL TECHNOLOGIST Kristin De La Torre PERFORMANCE TEST CONSULTANT LAB BLOOD ORDERABLES Final Res ult [facility] Department [place] [address] * Hepatitis C antibody (11/20/2021 5:27 PM CDT) Hep C Ab Nonreactive Nonreactive [facility] Comment:Antibodies to HCV no t detected. Does NOT exclude the possibility of recent exposure to HCV. Blood 11/20/2021 5:27 PM CDT 11/20/2021 5:53 PM CDT Kristin De La Torre PERFORMANCE TEST CONSULTANT LAB MICROBIOLOGY - GENERAL ORD ERABLES Edited Result - Final LIANNE العراقي [facility] Department [place] [address] from Last 3 Months or Most Recently Relevant to Health Maintenance Insurance [facility] CHOICE PLUS [address] [facility] CHOICE PPO [employer] PPO Advance Directives For more information, please contact: [phone] * Full Code (Latest Code Status on File) Date Activated Date Inactivated Comments 11/06/2021 10:33 PM 11/09/2021 8:01 PM Healthcare Agents on File Name Relationship Healthcare Agent Relationssd p Communication Geno [facility] Care Agent Care Teams Doula Relationship Specialty [place] [id number] [facility] [address] [place] [address] PCP - General Family Practice 01/30/19
--- OUTSIDE RECORDS SUMMARY | 2024-10-28 09:15 | XMS_ITS | Clinical Summary ---
Author Organization [facility] Address [address] [place] [address] Care Team Providers Care Boat Joiner Helper Name Role Phone Ewa Raya NP Primary Care Provider [phone] Allergies Active Allergy Reactions Criticality Noted Date [...] 20 mg/0.4 mL pen injectorIndicat ions:Multiple sclerosis (HCC) Inject 20 mg under the skin every 4 (four) weeks 0.4 mL 5 06/13/2024 Active carbidopa-levod opa (SINEMET) 25-100 mg per tabletIndicatio ns:Parkinsonism Take 2 tablets by mouth daily 180 tablet 3 08/17/2024 08/17/20 Active carBAMazepine XR (TEGretol XR) 100 mg [...] Neurogenic bladder disorder 12/28/2011 Multiple sclerosis 04/30/2006 Encounters Date Type Department Care Team Description 08/31/2024 12:00 PM SUGAR REFINER Lab [facility] [address] [place] [phone] Multiple sclerosis (HCC); ARUN (internuclear ophthalmoplegia), bilateral; Abnormal MRI; Abnormality of gait and mobility; Diplopia; High risk medication use; Medication monitoring encounter; Neurogenic bladder disorder; Trigeminal neuralgia 08/31/2024 10:25 AM SUGAR REFINER - 08/31/2024 11:59 PM SUGAR REFINER Hospital Encounter [facility] [address] [place] [address] Omar Mitchell MD Multiple sclerosis (HCC) Discharge Disposition: Discharge to home or self care 08/31/2024 9:30 AM SUGAR REFINER Office Visit [facility] Multiple Sclerosis [facility] Advanced Medicine 7th [place] [address] Kristin De La Torre, JERICHO ARUN (internuclear ophthalmoplegia), bilateral (Primary Dx); Multiple sclerosis (HCC); Abnormal MRI; Abnormality of gait and mobility; Diplopia; High risk medication use; Medication monitoring encounter; Neurogenic bladder disorder; Trigeminal neuralgia 08/31/2024 Documentation [facility] Multiple Sclerosis [address] [place] [phone] Kristen Aleman RN 08/29/2024 Telephone [facility] Scheduling [address] [place], [place] [id number] Mariah Rice BS 08/28/2024 Telephone [facility] Scheduling [address] [place] [address] ChoriGrant thornelnoza 08/17/2024 Orders Only [facility] Multiple Sclerosis [address] [place] [phone] Omar Mitchell MD Multiple sclerosis (HCC); High risk medication use; Vitamin D deficiency; Abnormal MRI; Mixed anxiety and depressive disorder; Neurogenic bladder from Last 3 Months Immunizations Immunization Administration Dates Next Due COVID-19 [...] 12/11/2021 Pneumococcal Conjugate Pcv20 08/20/2023 Tdap 12/08/2021 Surgical History Surgery Date Site/Laterality Comments HI BX BREAST NEEDLE CORE W/O IMAGING GUIDANCE SPX Breast Biopsy During Breast Surgery - has fibrocystic breast disease. (Added by Vers[employer]) Medical History Medical History Date Comments Reflux esophagitis Chronic Reflu x Esophagitis - (Added by Vers[employer] Conv) Urinary calculus Urinary Calculu s On The Right - (Added by Vers[employer] Conv) Allergic rhinitis Allergic rhini tis - (Added by tweetTV) Uncomplicated asthma Asthma - (A dded by tweetTV) Personal history of other di seases of the nervous system and sense organs History of optic neuri tis - 1999 (Added by Vers[employer] Conv) Personal history of other sp ecified conditions History of vertigo - 1997 (A dded by tweetTV) Multiple sclerosis (HCC) Multipl e sclerosis - (Added by tweetTV) Social History Tobacco Use Types Packs/Day Years [...] on file Legal Sex Female 1:43 AM SUGAR REFINER Gender Identity Female 11/08/2020 10:54 AM CDT Sexual Orientation Straight 11/08/2020 10 :54 AM CDT Obstetrics History Last Filed Vital Signs Vital Sign Reading Time Taken Comments Blood Pressure 143/82 08/31/2024 9:08 AM SUGAR REFINER Pulse 66 08/31/2024 9:08 AM SUGAR REFINER Temperature 36.9 C (98.4 F) 11/20/2021 2:36 PM CDT Respiratory Rate 16 11/09/2021 7:50 AM CDT Oxygen Saturation 96% 11/09/2021 7:50 AM CDT Inhaled Oxygen Concentration - - Weight 82.1 kg (181 lb) 08/31/2024 9:08 AM SUGAR REFINER Height 165.1 cm (5' 5 ) 08/31/2024 9:08 AM SUGAR REFINER Body Mass Index 30.12 08/31/2024 9:08 AM SUGAR REFINER Plan of Treatment Health Maintenance Due Date Last Done Comments Cervical Cancer Screening 1965 Colon Cancer Screening-Colonoscopy 1965 Depression Screening 1965 Regular Well Visit/Exam 18-64 01/10/1982 Covid-19 Vaccine (8 - Modern a risk ) 11/02/2024 05/05/2024, 05/18/2023, 06/11/2022, Additional history exists Breast Cancer Screening-Mammogram 03/07/2025 03/07/2024, 03/07/2024, 02/08/2023, Additional history exists DTaP/Tdap/Td Vaccine (2 - Td or Tdap) 12/09/2031 12/08/2021 Hepatitis C Screening Completed 11/20/2021, 015 Hepatitis B Screening Completed 01/07/2022 , 12/08/2021, 11/20/2021 Pneumococcal vaccine <65 Completed 08/20/2023 Zoster Vaccine Completed 11/04/2023, 09/03/2023 Influenza Vaccine Completed 05/08/2024, , 05/18/2023, Additional history exists Procedures Procedure Name Priority Date/Time Associated Diagnosis Comments MRI SPINE CERVICAL THORACIC W WO CONTRAST Routine 08/31/2024 1:04 PM SUGAR REFINER Multiple sclerosis (HCC) MRI MS BRAIN 3T PROTOCOL W WO CONTRAST Routine 08/31/2024 1:04 PM SUGAR REFINER Multiple sclerosis (HCC) EGFR Routine 08/31/2024 10:24 AM SUGAR REFINER Multiple sclerosis (HCC) ARUN (internuclear ophthalmoplegia), bilateral Abnormal MRI Abnormality of gait and mobility Diplopia High risk medication use Medication monitoring encounter Neurogenic bladder disorder Trigeminal neuralgia DIFFERENTIAL AUTO Routine 08/31/2024 10: 24 AM SUGAR REFINER Multiple sclerosis (HCC) ARUN (internuclear ophthalmoplegia), bilateral Abnormal MRI Abnormality of gait and mobility Diplopia High risk medication use Medication monitoring encounter Neurogenic bladder disorder Trigeminal neuralgia CBC WITH AUTO DIFFERENTIAL Routine 08/31/2024 10:24 AM SUGAR REFINER Multiple sclerosis (HCC) ARUN (internuclear ophthalmoplegia), bilateral Abnormal MRI Abnormality of gait and mobility Diplopia High risk medication use Medication monitoring encounter Neurogenic bladder disorder Trigeminal neuralgia IMMUNE COMPETENCE Routine 08/31/2024 10: 24 AM SUGAR REFINER Multiple sclerosis (HCC) ARUN (internuclear ophthalmoplegia), bilateral Abnormal MRI Abnormality of gait and mobility Diplopia High risk medication use Medication monitoring encounter Neurogenic bladder disorder Trigeminal neuralgia IGM Routine 08/31/2024 10:24 AM SUGAR REFINER Multiple sclerosis (HCC) ARUN (internuclear ophthalmoplegia), bilateral Abnormal MRI Abnormality of gait and mobility Diplopia High risk medication use Medication monitoring encounter Neurogenic bladder disorder Trigeminal neuralgia IGA Routine 08/31/2024 10:24 AM SUGAR REFINER Multiple sclerosis (HCC) ARUN (internuclear ophthalmoplegia), bilateral Abnormal MRI Abnormality of gait and mobility Diplopia High risk medication use Medication monitoring encounter Neurogenic bladder disorder Trigeminal neuralgia IGG Routine 08/31/2024 10:24 AM SUGAR REFINER Multiple sclerosis (HCC) ARUN (internuclear ophthalmoplegia), bilateral Abnormal MRI Abnormality of gait and mobility Diplopia High risk medication use Medication monitoring encounter Neurogenic bladder disorder Trigeminal neuralgia COMPREHENSIVE METABOLIC PANEL Routine 08/31/2024 10:24 AM SUGAR REFINER Multiple sclerosis (HCC) ARUN (internuclear ophthalmoplegia), bilateral [...] Thoracic W WO Contrast (08/31/2024 1:04 PM SUGAR REFINER) Anatomical Region Laterality Modality Spine N/A Magnetic Resonan ce 08/31/2024 3:11 PM SUGAR REFINER Impressions 08/31/2024 3:18 PM SUGAR REFINER Multiple unchanged intracranial as well as cervical and thoracic white matter lesions. New T2 Lesions: None Enhancing Lesions: None Other significant findings: None Dictated by: Arjun Silva MD The radiology attending physician has personally reviewed this study, and had reviewed and/or edited this written report and agrees with it. Electronically signed by: Roberto Alfaro M.D. Ph.D. Narrative 08/31/2024 3:18 PM SUGAR REFINER EXAMINATION: Magnetic resonance imaging (MRI) of the [...] FLAIR, and T2*-weighted gradient echo images. Scanner: [facility] Field Strength: 3T Contrast information: 16 mL [...] 10, unchanged Enhancing Brain Lesions: None T2/FLAIR [place] of Disease: Severe, more than 30 typical [...] FLAIR, and T2*-weighted gradient echo images. Scanner: [facility] Field Strength: 3T Contrast information: 16 mL [...] 10, unchanged Enhancing Brain Lesions: None T2/FLAIR [place] of Disease: Severe, more than 30 typical [...] Protocol W WO Contrast (08/31/2024 1:04 PM SUGAR REFINER) Anatomical Region Laterality Modality Head and Neck N/A Magnetic Resonan ce 08/31/2024 3:11 PM SUGAR REFINER Impressions 08/31/2024 3:18 PM SUGAR REFINER Multiple unchanged intracranial as well as cervical and thoracic white matter lesions. New T2 Lesions: None Enhancing Lesions: None Other significant findings: None Dictated by: Arjun Silva MD The radiology attending physician has personally reviewed this study, and had reviewed and/or edited this written report and agrees with it. Electronically signed by: Roberto Alfaro M.D. Ph.D. Narrative 08/31/2024 3:18 PM SUGAR REFINER EXAMINATION: Magnetic resonance imaging (MRI) of the [...] FLAIR, and T2*-weighted gradient echo images. Scanner: [facility] Field Strength: 3T Contrast information: 16 mL [...] 10, unchanged Enhancing Brain Lesions: None T2/FLAIR [place] of Disease: Severe, more than 30 typical [...] FLAIR, and T2*-weighted gradient echo images. Scanner: [facility] Field Strength: 3T Contrast information: 16 mL [...] 10, unchanged Enhancing Brain Lesions: None T2/FLAIR [place] of Disease: Severe, more than 30 typical [...] Roberto Alfaro M.D. Ph.D. Omar Mitchell MD [facility] MRI PROCEDURES Final Result * eGFR (08/31/2024 10:24 AM SUGAR REFINER) eGFR 90 >=60 mL/min/1. 73 m2 Comment: [...] reviewed 2021. Blood 08/31/2024 10:2 4 AM SUGAR REFINER 08/31/2024 11:02 AM SUGAR REFINER us Kristin De La Torre MEDICAL EQUIPMENT SALES LAB BLOOD ORDERABLES Final Res ult [facility] Department [place] [address] * Differential, auto (08/31/2024 10:24 AM SUGAR REFINER) Neutrophil abs 5.2 1.5 - 6.5 K/cumm Imm gran abs 0.0 0.0 - 0.1 K/cumm [facility] Lymphocyte abs 1.3 0.8 - 3.3 K/cumm [facility] Monocyte abs 0.4 0.2 - 0.8 K/cumm [facility] Eosinophil abs 0.1 0.0 - 0.5 K/cumm [facility] Basophil abs 0.0 0.0 - 0.1 K/cumm [facility] Neutrophil pct 73.8 % [facility] Comment: Interpretive Data Percent cell count reference ranges are not reported, since discordance with absolute values may lead to misinterpretation of CBC data. Current Interpretive Data was last revised on 2017. Imm gran pct 0.3 % [facility] Comment: Interpretive Data Percent cell count reference ranges are not reported, since discordance with absolute values may lead to misinterpretation of CBC data. Current Interpretive Data was last revised on 2017. Lymphocyte pct 18.7 % [facility] Comment: Interpretive Data Percent cell count reference ranges are not reported, since discordance with absolute values may lead to misinterpretation of CBC data. Current Interpretive Data was last revised on 2017. Monocyte pct 6.1 % [facility] Comment: Interpretive Data Percent cell count reference ranges are not reported, since discordance with absolute values may lead to misinterpretation of CBC data. Current Interpretive Data was last revised on 2017. Eosinophil pct 0.7 % [facility] Comment: Interpretive Data Percent cell count reference ranges are not reported, since discordance with absolute values may lead to misinterpretation of CBC data. Current Interpretive Data was last revised on 2017. Basophil pct 0.4 % [facility] Comment: Interpretive Data Percent cell count reference ranges are not reported, since discordance with absolute values may lead to misinterpretation of CBC data. Current Interpretive Data was last revised on 2017. Blood 08/31/2024 10:2 4 AM SUGAR REFINER 08/31/2024 11:03 AM SUGAR REFINER Kristin De La Torre MEDICAL EQUIPMENT SALES LAB BLOOD ORDERABLES Final Res ult [facility] Department [place] [address] * (ABNORMAL) Immune competence (08/31/2024 10:24 AM SUGAR REFINER) CD3 pct 87 60 - 88 % CD3 Absolute 1,031 661 - 1,963 cells/mcL [facility] CD4 pct 76(H) 31 - 64 % [facility] CD4 Absolute 876 365 - 1,294 cells/mcL [facility] CD8 pct 9(L) 12 - 40 % [facility] CD8 Absolute 100(L) 187 - 781 cells/mcL [facility] CD19 pct 0(L) 6 - 25 % [facility] CD19 Absolute <25(L) 86 - 488 cells/mcL [facility] Comment:Verified [id number] pct 12 5 - 25 % [facility] [id number] Absolute 143 76 - 467 cells/mcL [facility] CD4/CD8 ratio 8.4(H) 0.9 - 4.4 [facility] Blood 08/31/2024 10:2 4 AM SUGAR REFINER 08/31/2024 11:02 AM SUGAR REFINER Kristin De La Torre MEDICAL EQUIPMENT SALES LAB BLOOD ORDERABLES Final Res ult [facility] [place] [address] * CBC with auto differential (08/31/2024 10:24 AM SUGAR REFINER) Pathologist [facility] WBC 7.1 3.8 - 9.9 K/cumm Hgb 13.1 11.9 - 15.5 g/dL [facility] Hct 40.5 35.6 - 45.5 % [facility] Plt 188 150 - 400 K/cumm [facility] MPV 10.8 9.1 - 12.3 fL [facility] RBC 4.43 3.90 - 5.20 M/cumm [facility] MCV 91.4 81.3 - 96.4 fL [facility] MCH 29.6 27.1 - 33.3 pg [facility] MCHC 32.3 32.3 - 35.7 g/dL [facility] RDW CV 12.2 11.1 - 14.9 % [facility] RDW SD 41.1 35.7 - 48.1 fL [facility] NRBC abs 0.00 0.00 - 0.01 K/cumm [facility] Blood 08/31/2024 10:2 4 AM SUGAR REFINER 08/31/2024 11:03 AM SUGAR REFINER Kristin De La Torre MEDICAL EQUIPMENT SALES LAB BLOOD ORDERABLES Final Res ult [facility] Department [place] [address] * IgA (08/31/2024 10:24 AM SUGAR REFINER) Pathologist [facility] Immunoglobulin A 237 70 - 400 mg/dL Blood 08/31/2024 10:2 4 AM SUGAR REFINER 08/31/2024 11:02 AM SUGAR REFINER Kristin De La Torre MEDICAL EQUIPMENT SALES LAB BLOOD ORDERABLES Final Res ult [facility] [place] [address] * IgM (08/31/2024 10:24 AM SUGAR REFINER) [facility] Immunoglobulin M 59 40 - 230 mg/dL Blood 08/31/2024 10:2 4 AM SUGAR REFINER 08/31/2024 11:02 AM SUGAR REFINER Kristin De La Torre MEDICAL EQUIPMENT SALES LAB BLOOD ORDERABLES Final Res ult Performing Organization Address City/[facility] Co de Phone Number [facility] [place] [address] * IgG (08/31/2024 10:24 AM SUGAR REFINER) [facility] Immunoglobulin G 1,074 700 - 1,600 mg/dL Blood 08/31/2024 10:2 4 AM SUGAR REFINER 08/31/2024 11:02 AM SUGAR REFINER Kristin De La Torre MEDICAL EQUIPMENT SALES LAB BLOOD ORDERABLES Final Res ult Performing Organization Address City/[facility] Co de Phone Number [facility] Department [place] [address] * Comprehensive metabolic panel (08/31/2024 10:24 AM SUGAR REFINER) [facility] Sodium 141 135 - 145 mmol/L Potassium, pl 4.7 3.3 - 4.9 mmol/L [facility] Chloride 103 97 - 110 mmol/L [facility] CO2 31 22 - 32 mmol/L [facility] Anion gap 7 2 - 15 mmol/L [facility] BUN 15 6 - 25 mg/dL [facility] Creatinine 0.76 0.60 - 1.10 mg/dL [facility] Glucose 96 70 - 199 mg/dL [facility] Comment: Interpretive Data Fasting glucose >/= 126 [...] 2022. Calcium 10.1 8.5 - 10.3 mg/dL [facility] Bilirubin, total 0.2 0.1 - 1.2 mg/dL [facility] Protein, pl 7.4 6.5 - 8.5 g/dL [facility] Albumin 4.3 3.5 - 5.0 g/dL [facility] Alk phos 100 40 - 130 Units/L [facility] ALT 8 7 - 45 Units/L [facility] AST 25 10 - 45 Units/L [facility] Blood 08/31/2024 10:2 4 AM SUGAR REFINER 08/31/2024 11:02 AM SUGAR REFINER Kristin De La Torre MEDICAL EQUIPMENT SALES LAB BLOOD ORDERABLES Final Res ult [facility] Department [place] [address] * Hepatitis C antibody (11/20/2021 5:27 PM CDT) Hep C Ab Nonreactive Nonreactive [facility] Comment:Antibodies to HCV no t detected. Does NOT exclude the possibility of recent exposure to HCV. Blood 11/20/2021 5:27 PM CDT 11/20/2021 5:53 PM CDT Kristin De La Torre MEDICAL EQUIPMENT SALES LAB MICROBIOLOGY - GENERAL ORD ERABLES Edited Result - Final [facility] Department [place] [address] from Last 3 Months or Most Recently Relevant to Health Maintenance Insurance [facility] [place] [address] [place] [address] [facility] CHOICE PPO Advance Directives For more information, please contact: [phone] * Full Code (Latest Code Status on File) Date Activated Date Inactivated Comments 11/06/2021 10:33 PM 11/09/2021 8:01 PM Healthcare Agents on File Name Relationship Healthcare Agent [facility] Communication [facility] Care Agent Care Teams Boat Joiner Helper Relationship Specialty [place] [address] [address] PCP - General Family Practice 01/30/19
--- OUTSIDE RECORDS SUMMARY | 2024-10-28 09:15 | XMS_ITS | Encounter Summary ---
Author Organization [facility] Address [address] [place] [address] Care Team Providers Care Clinical Esthetician Name Role Phone Ewa Raya NP Primary Care Provider [phone] Encounter Details Date Type Department Care Team (Late st Contact Info) Description 10/22/2021 Telephone [facility] Radiology [address] [place] [address] Omar Mitchell MD [address] [place] [address] Social History Tobacco Use Types Packs/Day Years Used Date Smoking Tobacco: Former Smokeless Tobacco: Never Comments Unknown Sex and Gender Information Value Date Recorded Sex Assigned at Not on file Legal Sex Female 1:43 AM MASKING MACHINE FEEDER Gender Identity Female 11/08/2020 10:54 AM CDT Sexual Orientation Straight 11/08/2020 10 :54 AM CDT documented as of this encounter Plan of Treatment Not on file documented as of this encounter Visit Diagnoses Not on filedocumented in this encounter Care Teams Clinical Esthetician Relationship Specialty [place] [address] [facility] [address] [place], [place] [id number] PCP - General Family Practice 01/30/19 documented as of this encounter
--- OUTSIDE RECORDS SUMMARY | 2024-10-28 09:15 | XMS_ITS | Continuity of Care Document ---
Author Organization [facility] Address [address] [place] [address] [address] [place] [address] Phone Care Team Providers Care Texture Artist Name Role Phone Mai Villanueva Unavailable Unavailable Advance Directives Directive Yes / No Effective Date File Name No Information Encounters Encounter Description Practice Location Reason(s) For Visit Diagnoses Date Provider Providers Copied on Encounter [facility], [id number] [place] [address] [address], [place], [place], [id number], [place] tel:[phone] [facility] [place] No Information [phone] Kay Oneill. [address] , [address], [place], [address], [place]. tel:[phone] Family History Family Member Type Diagnosis Age At Onset No Information Payers Payer name Insurance type Covered alliance party ID Authoriza tion(s) No Information Social History Type Description Quantity Date Captured Comments Sex Female Smoking Status No Information Chief Complaint And Reason For Visit No Information Reason For Referral Reason For Referral No Information History Of Present Illness Encounter Date Complaint History Of Prese nt Illness No Information Functional Status Date Functional Assessmen t No Information Instructions Date Instruction Additional Infor mation No Information Assessments Type Assessment Date No Information Patient Care Teams Name Effective Dates (start - stop) Status Members No Information
--- OUTSIDE RECORDS SUMMARY | 2024-10-28 09:15 | XMS_ITS | Encounter Summary ---
Author Organization [facility] Address [facility] [place] [address] Care Team Providers Care Regulatory Affairs Consultant Name Role Phone Antonietta Mckeon MD Primary Care Provider [phone] Encounter Details Date Type Department Care Team (Late st Contact Info) Description 07/16/2023 TVTYt Message Enc [facility] Family & Internal Medicine [facility] [id number] [place] [phone] Antonietta Mckeon MD [address] [place] [address] [address] Covid Social History Tobacco Use Types Packs/Day Years Used Date Smoking Tobacco: Former Cigarettes Q uit: 1988 Smokeless Tobacco: Never Alcohol Use Standard Drinks/Week Comments Yes 0 [...] Date Recorded Patient Health Questionnaire-2 Score 0 11/18/2022 Comments No Sex and Gender Information Value Date Recorded Sex Assigned at Female 11/03/2019 7:07 AM CDT Legal Sex Female 4:23 PM CDT Gender Identity Female 11/03/2019 7:07 AM CDT Sexual Orientation Straight 11/03/2019 7: 07 AM CDT documented as of this encounter Progress Notes * Cindy Mathews RN - 07/16/2023 11:21 AM CST Spoke with patient and she is agreeable to appt today. TH AND SAFETY CONSULTANT * Antonietta Mckeon MD - 07/16/2023 11:12 AM CST Yes. Please schedule and I will call her around noon or earlier if possible. Thanks TH AND SAFETY CONSULTANT * Cindy Mathews RN - 07/16/2023 10:47 AM CST VV? TH AND SAFETY CONSULTANT documented in this encounter Plan of Treatment Upcoming Encounters Date Type Department Care Team (Late st Contact Info) Description 02/01/2025 8:10 AM CDT Laboratory Only [facility] Family & Internal Medicine [address] [phone] 02/08/2025 10:20 AM CDT Office Visit [facility] Family & Internal Medicine [address] [phone] [place] [address] [place] [id number] documented as of this encounter Visit Diagnoses Not on filedocumented in this encounter Additional Health Concerns Assessment Noted Time PHQ-9 Depression Total Score: 0 08/31/19 23 8:32 AM HEALTH AND SAFETY CONSULTANT documented as of this encounter Care Teams Regulatory Affairs Consultant Relationship Specialty Start [place] [address] [address] [place] [address] PCP - General FAMILY PRACTICE 11/04/21 documented as of this encounter
--- OUTSIDE RECORDS SUMMARY | 2024-10-28 09:15 | XMS_ITS | Encounter Summary ---
Author Organization [facility] Address [address] [place] [address] Care Team Providers Care Dry Wall Applicator Name Role Phone Antonietta Mckeon MD Primary Care Provider [phone] Encounter Details Date Type Department Care Team (Late Contact Info) Description 02/17/2023 MyChart Message Enc [facility] - [facility] [address] [place] [address] [id number] [employer], [facility] Provider Air Quality Message Social History Tobacco Use Types Packs/Day Years [...] Description 02/01/2025 8:10 AM CDT Laboratory Only [facility] [address] [place] [address] 02/08/2025 10:20 AM CDT Office Visit [facility] [address] [place] [address] [place] [address] [facility] [address] [place] [id number] documented as of this encounter Visit Diagnoses Not on filedocumented in this encounter Additional Health Concerns Assessment Noted Time PHQ-9 Depression Total Score: 0 08/31/19 23 8:32 AM TUMBLER DYEING MACHINE OPERATOR documented as of this encounter Care Teams Dry Wall Applicator Relationship Specialty [place] [id number] [place] [id number] PCP - General FAMILY PRACTICE 11/04/21 documented as of this encounter
--- OUTSIDE RECORDS SUMMARY | 2024-10-28 09:18 | XMS_ITS | Continuity of Care Document ---
Author Organization [facility] Address [address] [place] [address] [address] [place] [address] Phone Care Team Providers Care Billing Analyst Name Role Phone Mai Villanueva Unavailable Unavailable Advance Directives Directive Yes / No Effective Date File Name No Information Encounters Encounter Description Practice Location Reason(s) For Visit Diagnoses Date Provider Providers Copied on Encounter [facility], [id number] [place] [address] [address], [place], [place], [id number], [place] tel:[phone] [facility] No Information [phone] Kay Oneill. [address] [facility] , [address], [place], [address], [place]. tel:[phone] Family History Family Member Type Diagnosis Age At Onset No Information Payers Payer name Insurance type Covered constitution party ID Authoriza tion(s) No Information Social [...]
[2024-10-28 10:00] VITALS: BP 117/82; PULSE 76; RESP 17; TEMP 36.3; O2SAT 100
[2024-10-28 10:14] LABS: EDCOVIDSCREEN Negative (Negative); EDINFLUASCREEN Negative (Negative); EDINFLUBSCREEN Negative (Negative); EDSTREPNEGPOS1 Negative (Negative)
--- NOTE | 2024-10-28 10:31 | ED_ITS ---
HPI - URI/Sore Throat General Chief Complaint: Upper Respiratory Infection Stated Complaint: sore throat Source: patient Mode of arrival: wheelchair (History of MS) Limitations: no limitations History of Present Illness HPI Narrative: 59-year-old female presents to [facility] with complaints of sore throat, headache, runny nose and nasal congestion for the past 3 days. Patient has MS and is in motorized wheelchair at this time. Patient has been taking zjkb-[id number] allergy medications with little relief. Patient denies sick contacts. Patient denies recent travel. Patient is a nonsmoker. Patient melody es fever, nausea, vomiting, diarrhea, shortness of breath, wheezing or cough. MD elicited complaint: sore throat, rhinorrhea and nasal congestion Onset (ago): day(s) (3) Exacerbating factors: swallowing Treatments prior to arrival: cold medicine Related Data Allergies Allergy/AdvReac Type Severity Reaction Status Date / Time latex Allergy Mild Rash Verified 10/28/24 10:04 NUTS, NUT OILS Allergy Unknown HIVES, Uncoded 10/28/24 10:04 DIFF BREATHING TAPE AdvReac Mild BLISTERS Uncoded 10/28/24 10:04 Review of Systems Constitutional: Constitutional: Denies chills, Denies fatigue, Denies fever(s) and Denies weakness ENT: Denies vertigo, Denies dizziness, Denies epistaxis, Reports nasal ovi estion and Reports sore throat Respiratory: Respiratory: Denies cough, Denies dyspnea and Denies wheezing Gastrointestinal: Gastrointestinal: Denies diarrhea, Denies nausea and Denies vomiting Musculoskeletal: Musculoskeletal: Denies arthralgias and Denies joint swelling Integumentary/Breasts: Skin/Breast: Denies pruritus, Denies erythema and Denies rash Neurologic: Denies dizziness, Denies syncope and Denies headache(s) Exam Const: General: healthy appearing and no acute distress Nutritional Appearance: well nourished Orientation/consciousness: patient oriented x3 Limitations: no limitations HENMT: Head: normal to inspection Ears: external ears normal, TM's normal bilaterally and EAC's normal Face/Nose/Sinus: Normal external nose present and Normal nares present Mouth: Yes Normal oral and palatal mucosa present, Yes lip normal and Yes moist mucous membranes Other: Clear postnasal drainage noted with mild erythema noted to posterior oropharynx Eyes: Conjunctivae: conjunctivae normal Neck: Neck: normal visual inspection Resp: Effort & Inspection: normal respiratory effort and not labored Auscultation: clear to auscultation bilaterally, no crackles, no rales, no rhonchi and no wheezes Cardio: Rate: regular rate Rhythm: regular rhythm Heart sounds: no murmurs Skin: General skin exam: normal color Rashes: no rashes Wounds: no wounds Neuro: General: patient oriented x3 and moves all extremities Speech: normal speech Psych: Affect: normal affect Attitude: cooperative Course Course Level of Care: Express Care Visit Vital Signs Vital signs: Vital Signs Temperature 36.3 C L 10/28/24 10:00 Pulse Rate 76 10/28/24 10:00 Respiratory Rate 17 10/28/24 10:00 Blood Pressure 117/82 10/28/24 10:00 Pulse Oximetry 100 10/28/24 10:00 Oxygen Delivery Room Air 10/28/24 10:00 Temperature 36.3 C L 10/28/24 10:00 Pulse Rate 76 10/28/24 10:00 Respiratory Rate 17 10/28/24 10:00 Blood Pressure 117/82 10/28/24 10:00 Pulse Oximetry 100 10/28/24 10:00 Oxygen Delivery Room Air 10/28/24 10:00 MDM - URI/Sore Throat MDM Narrative Medical decision making narrative: Instructed patient to take allergy medication daily; patient reports that she has this medication at home and is not needing a prescription at this time. Instructed patient to complete warm saltwater gargles as needed as well as alternate Motrin and Tylenol as needed for pain. Educated patient follow-up with primary care provider if symptoms not improving to proceed to the emergency room if symptoms worsen Differential Diagnosis Differential diagnosis: Likely otitis media, sinusitis and bronchitis Lab Data Labs: Lab Results 10/28/24 Range/Units 10:12 POC Influenza A Ag Negative (Negative) POC Influenza B Ag Negative (Negative) POC SARS CoV-2 Ag Negative (Negative) POC Grp A Strep Screen Negative (Negative) Critical Care Time Critical Care Time Critical Care Time: No Discharge Plan Discharge Clinical Impression: Viral infection Patient Disposition: Home, Self-Care Condition: Stable Instructions: Viral Syndrome (ED), Postnasal Drip (DC) Additional Instructions: Take [id number] antihistamine daily such as Fabby or Claritin Warm saltwater gargles as needed for throat discomfort Alternate Motrin and Tylenol as needed for pain Follow-up with primary care provider if symptoms not improved To the emergency room symptoms worsen Patient Language: Sammarinese Follow-up/Referrals: Mike,MD Antonietta [Primary Care Provider] - Time of Disposition: 10:35
== END 2024-10-28 10:36 | disposition home or self-care (01) ==
PROVIDERS: Emergency Provider Nurse Practitioner Family; PCP Family Medicine
DX: B34.9 Viral infection, unspecified (principal); Z20.822 Contact with and (suspected) exposure to COVID-19
CPT/HCPCS: 87081; 87426; 87804; 87880; 99203; G0463